=== PATIENT | male | born 1975 | race Caucasian/White ===

== ENCOUNTER 2016-08-30 09:35 | Day surgery (SDC) | payer SELFPAY ==
[~2016-08-30 09:35] MED LIST: BACTRIM DS TAB1 EAC2 PO; MELATONIN10 M4 PO; NO HOME MEDICATION XX; ULTRAM50 MG PO
== END 2016-08-30 14:50 ==
LOC: SRG 09:35 → SHSC 09:38 → ORW 11:35 → PACU 12:53 → SHSB 13:30
PROC: 0YU60JZ Supplement Left Inguinal Region with Synthetic Substitute, Open Approach (ICD-10-PCS; principal; 2016-08-30)
DX: K40.90 Unilateral inguinal hernia, without obstruction or gangrene, not specified as recurrent (principal); Z79.899 Other long term (current) drug therapy
CPT/HCPCS: C1781; J0690

== ENCOUNTER 2016-12-08 20:31 | Emergency (ER) | payer SELFPAY ==
[2016-12-08] MEDS ORDERED: BACTRIM DS TAB1 EAC2 PO (21:23)
[2016-12-08] MEDS ORDERED: NORCO 5-325 TA1 EACH PO (21:23)
== END 2016-12-08 21:34 ==
LOC: EDMED 20:31
PROC: 0H9HXZZ Drainage of Right Upper Leg Skin, External Approach (ICD-10-PCS; principal; 2016-12-08)
DX: L02.415 Cutaneous abscess of right lower limb (principal)